=== PATIENT | male | born 1970 | race American Indian/Alaskan Native ===

== ENCOUNTER 2021-03-03 00:30 | Emergency (ER) | payer SELFPAY ==
[2021-03-03] MEDS ORDERED: FAMOTIDINE 20 MG/2 ML INJ IV ONE (00:57)
[2021-03-03] MEDS ORDERED: diphenhydrAMINE 50 MG/ML VIAL IV ONE (00:57)
[2021-03-03] MEDS ORDERED: SODIUM CHLORIDE 0.9% 1000 ML 1,000 ML IV ONE (00:57)
[2021-03-03] MEDS ORDERED: methylPREDNISolone Sod Succinate 125 MG/2 ML INJ IV ONE (00:57)
--- NOTE | 2021-03-03 01:02 | Emergency Department Report ---
ED Allergic Reaction HPI - General Chief complaint: Allergic Reaction Stated complaint: POSSIBLE ALLERGIC REACTION Time Seen by Provider: 03/03/21 00:53 Source: patient Mode of arrival: Ambulatory Limitations: No Limitations - History of Present Illness Initial Comments: Patient is 51 years old male with history of allergy and previous acute allergic reaction. Patient stated that he has been having itching for the last few days however for the last 30 minutes or so he started feeling that his throat is closing. Patient denies any history of intubation before. Patient also denied any recent history of fever or chills. No shortness of breath or wheezing. 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 Complaint: allergic reaction, hives, facial swelling -: minutes(s), days(s) Exposure: unknown Symptoms: rash, itching, facial swelling, difficulty swallowing Severity: moderate Treatment Prior to Arrival: none Previous Allergy History: prior ED visit(s) - Related Data Allergies Allergy/AdvReac Type Severity Reaction Status Date / Time dog dander Allergy Unknown Verified 03/03/21 00:37 ED Review of Systems ROS: Stated complaint: POSSIBLE ALLERGIC REACTION Other details as noted in HPI Comment: All other systems reviewed and negative Constitutional: denies: chills, fever ENT: throat pain. denies: hearing loss Respiratory: denies: cough, shortness of breath, SOB with exertion, SOB at rest Cardiovascular: denies: chest pain, palpitations Gastrointestinal: denies: abdominal pain Musculoskeletal: denies: back pain Neurological: denies: headache, weakness ED Past Medical Hx - Past Medical History Previous Medical History?: Yes Hx Asthma: Yes - Surgical History Past Surgical History?: Yes Hx Appendectomy: Yes - Social History Smoking Status: Current Every Day Smoker Substance Use Type: None ED Physical Exam - General Limitations: No Limitations General appearance: alert, in no apparent distress, anxious - Head Head exam: Present: atraumatic, normocephalic - Eye Eye exam: Present: normal appearance, PERRL - ENT ENT exam: Present: normal exam, normal orophraynx, mucous membranes moist - Neck Neck exam: Present: normal inspection, full ROM. Absent: tenderness, meningismus - Respiratory Respiratory exam: Present: normal lung sounds bilaterally - Cardiovascular Cardiovascular Exam: Present: regular rate, normal rhythm, normal heart sounds - GI/Abdominal GI/Abdominal exam: Present: soft, normal bowel sounds. Absent: distended, tenderness, guarding, rebound, rigid, organomegaly, mass, bruit, pulsatile mass, hernia - Extremities Exam Extremities exam: Present: normal inspection, full ROM, normal capillary refill. Absent: pedal edema, calf tenderness - Back Exam Back exam: Present: normal inspection, full ROM. Absent: CVA tenderness (R), CVA tenderness (L) - Neurological Exam Neurological exam: Present: alert, oriented X3, CN II-XII intact - Psychiatric Psychiatric exam: Present: normal mood - Skin Skin exam: Present: warm, dry, intact, rash ED Course Vital Signs 03/03/21 03/03/21 03/03/21 00:34 02:00 02:32 Temperature 98.2 F Pulse Rate 102 H 84 Respiratory 18 20 20 Rate Blood Pressure 137/85 Blood Pressure 116/69 [Left] O2 Sat by Pulse 96 98 99 Oximetry ED Medical Decision Making - Medical Decision Making Patient is 51 years old male with history of allergy and previous acute allergic reaction. Patient stated that he has been having itching for the last few days however for the last 30 minutes or so he started feeling that his throat is closing. Patient denies any history of intubation before. Patient also denied any recent history of fever or chills. No shortness of breath or wheezing. 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 Patient received Benadryl, Solu-Medrol and Pepcid. Patient stated that he is feeling better. No evidence of stridor or difficulty swallowing. Patient given prescription for Benadryl and prednisone and Pepcid and advised to follow-up with his primary doctor in the next 2 to 3 days and to return to the ER if he develop any new symptoms. Critical care attestation.: If time is entered above; I have spent that time in minutes in the direct care of this critically ill patient, excluding procedure time. ED Disposition Clinical Impression: Allergic reaction Disposition: - TO HOME OR SELFCARE Is pt being admited?: No Instructions: Allergies, Adult, [id number] Referrals: PRIMARY CARE, [Primary Care Provider] - 3-5 Days
[2021-03-03 06:03] VITALS: BP 124/67
== END 2021-03-03 06:06 | disposition home or self-care (01) ==
LOC: ED 00:30
DX: T78.40XA Allergy, unspecified, initial encounter (principal); J45.909 Unspecified asthma, uncomplicated; F17.200 Nicotine dependence, unspecified, uncomplicated; Z90.49 Acquired absence of other specified parts of digestive tract; Z91.038 Other insect allergy status
CPT/HCPCS: 96361; 96374; 96375; 99282; J1200; J2930; J7030